=== PATIENT | female | born 2000 | race Caucasian/White ===

== ENCOUNTER 2024-04-06 08:20 | Emergency (ER) | payer MEDICAID, SELFPAY ==
[2024-04-06 08:21] VITALS: BMI 28.3
[2024-04-06 08:23] VITALS: BP 142/85; PULSE 88; RESP 19; TEMP 37; O2SAT 98
--- NOTE | 2024-04-06 08:23 | XR_ITS ---
Examination: Complete OB ultrasound greater than 14 weeks Date and time of exam: April 06, 2024 0845 hrs. Indications: Vaginal bleeding and pelvic discomfort beginning one hour ago Findings: Viable intrauterine single fetus with single amniotic sac presentation transverse head maternal left Cardiac motion 144 BPM Placenta posterior grade 1 Umbilical cord insertion 3 vessel seen Amniotic fluid index 4.2 cm Cervix 5.0 cm Right ovary 2.3 x 1.9 cm arterial flow Left ovary 2.9 x 2.4 cm arterial flow. Composite estimated gestational age based on BPD, head circumference, abdominal circumference, femur length is 15 weeks 5 days Estimated weight 122 g. Survey of intracranial anatomy, spinal anatomy, abdominal anatomy, four-chamber heart performed with no abnormalities identified. Impression: Viable intrauterine gestation transverse presentation Placenta posterior grade 1 no abruption.
[2024-04-06 08:56] LABS: Basophils % (Auto) 0 % (0-2.5); Eosinophils # (Auto) 0.1 Thou/mm3 (0.0-0.5); Eosinophils % (Auto) 1 % (0-10); Hematocrit 37.2 % (36.0-46.0); Hemoglobin 12.8 g/dL (12.0-16.0); Immature Granulocytes % (Auto) 0 % (0-0); Immature Granulocytes Auto 0.02 Thou/mm3 (0.00-0.00); Lymphocytes % (Auto) 31 % (10-50); Mean Corpuscular HGB Conc 34.4 g/dl (31.0-37.0); Mean Corpuscular Hemoglobin 30.6 pg (25.0-35.0); Mean Corpuscular Volume 89 fL (80-100); Monocytes # (Auto) 0.4 Thou/mm3 (0.0-0.8); Monocytes % (Auto) 6 % (0-12); Neutrophils # (Auto) 3.8 Thou/mm3 (1.8-7.7); Neutrophils % (Auto) 61 % (37-80); Nucleated Red Blood Cell % 0 /100 WBC (0); Platelet Count 217 Thou/mm3 (140-440); RDW Standard Deviation 44.1 fL (36.4-46.3); Red Blood Count 4.18 Miln/mm3 (4.00-5.20); White Blood Count 6.3 Thou/mm3 (3.6-11.0)
[2024-04-06 09:41] LABS: Albumin, Serum 4.5 gm/dL (3.5-5.0); Albumin/Globulin Ratio 1.7 (1.2-2.2); Alkaline Phosphatase 59 U/L (46-116); Anion Gap 7 (7-16); Aspartate Amino Transferase 15 U/L (0-34); BUN/Creatinine Ratio 7 Ratio (12-20); Bilirubin,Total 0.4 mg/dL (0.3-1.2); Blood Urea Nitrogen < 5 mg/dL (9-23); Carbon Dioxide 23.3 mMol/L (20.0-31.0); Chloride 107 mMol/L (98-107); Creatinine (Component) 0.7 mg/dL (0.6-1.3); Estimated Creatinine Clearance 122.8 mL/min (>60); Globulin 2.6 gm/dL (2.3-3.5); Glucose 89 mg/dL (74-106); Osmolality,Calculated 270 (275-295); Potassium 3.5 mMol/L (3.4-5.1); Sodium 137 mMol/L (136-145); Total Protein 7.1 gm/dL (5.7-8.2); eGFR > 60 See Note
--- NOTE | 2024-04-06 09:45 | PRELIM_ITS ---
Obstetric ultrasound. April 06, 2024 at 0845 hoursClinical history: Vaginal bleeding, .Co mparison: None.Findings:There is a gravid uterus with a live fetus in transverse lie with head toward s the maternal left of mean gestational age 15 weeks and 5 days (by biometry). cardiac ac tivity is present at a heart rate of 144 beats per minute. The placenta is posterior in location. The re is no evidence of placenta previa or retroplacental hemorrhage. Amniotic fluid is adequate. Estima surinder weight is 122 grams+/- 118 grams. Estimated due date by ultrasound is 09/23/2024. The cervi jadiel length measures 5 cm. The internal os is closed. The right ovary measures 2.3 x 1.3 x 1.9 cm and is unremarkable. The left ovary measures 2.9 x 1.7 x 2.4 cm and is unremarkable. Both ovaries demonst rate color flow and spectral waveforms on Doppler evaluation. Impression:Gravid uterus with a single live fetus in transverse lie of mean gestational age 15 weeks and 5 days.Other findings as described above. Report Electronically Signed By: Ryan Patel 04/06/2024 9:45:17 AM [EST]
[2024-04-06 10:00] LABS: Alanine Aminotransferase 8 U/L (10-49)
[2024-04-06 10:22] LABS: Beta HCG,Quantitative 10295 mIU/mL (<5.0)
--- NOTE | 2024-04-06 10:34 | EDNOTE_ITS ---
ED OB Contraction Preg RMI/HPI General Chief complaint: Vaginal Bleeding Stated complaint: 16WKS PREG, VAG BLEED THIS AM Time Seen by Provider: 04/06/24 08:23 Arrival date/time: 04/06/24 08:20 23-year-old female approximately 16 weeks presents emerged department today stating that she had vaginal spotting this morning patient reports history of miscarriage and was concerned therefore she came to the ER for further evaluation Limitations: no limitations Related Data Home Medications ?Medication ?Instructions ?Recorded ?Confirmed prenat.vits,jadiel,[id number] 1 tab PO QDAY 10/22/20 11/27/20 ferrous sulfate 325 mg (65 mg 325 mg PO QDAY 11/27/20 11/27/20 iron) tablet (iron) Previous Rx's ?Medication ?Instructions ?Recorded hydrocodone 5 mg-acetaminophen 325 1 tab PO TID #20 tabs 01/20/22 mg tablet acetaminophen 650 mg 650 mg PO Q8H PRN fever or pain 02/24/22 tablet,extended release #30 tabs ibuprofen 600 mg tablet 600 mg PO Q8H PRN fever or pain 02/24/22 #30 tabs Allergies Allergy/AdvReac Type Severity Reaction Status Date / Time No Known Allergies Allergy Verified 04/06/24 08:23 Review of Systems Review of Systems Systems Reviewed: All systems reviewed, normal except as documented Constitutional Constitutional: Reports system reviewed and no additional complaints, except as documented, Denies fever(s) and Denies headache(s) Eyes Eyes: Reports system reviewed and no additional complaints, except as documented and Denies blurry vision ENT Ears, Nose, Mouth, and Throat: Reports system reviewed and no additional complaints, except as documented, Denies headache(s), Denies nasal congestion and Denies nasal discharge Cardiovascular Cardiovascular: Reports system reviewed and no additional complaints, except as documented, Denies chest pain and Denies dyspnea Respiratory Respiratory: Reports system reviewed and no additional complaints, except as documented, Denies chest congestion, Denies cough and Denies dyspnea Gastrointestinal Gastrointestinal: Reports system reviewed and no additional complaints, except as documented and Denies abdominal pain Genitourinary Genitourinary: Reports system reviewed and no additional complaints, except as documented and Reports abnormal vaginal bleeding Integumentary/Breasts Skin/Breast: Reports system reviewed and no additional complaints, except as documented and Denies rash Neurologic Neurologic: Reports system reviewed and no additional complaints, except as documented, Reports as per HPI and Denies headache(s) Past Medical History Past Medical History NEUROLOGIC: Negative Neurological Disorders CARDIAC: Negative Cardiac Disorders ED Exam General Limitations: Present no limitations General appearance: Present alert and in no apparent distress Head Head exam: Present atraumatic Eye Eye exam: Present normal appearance, PERRL, EOMI and conjunctival injection ENT ENT exam: Present normal exam, normal oropharynx and mucous membranes moist Neck Neck exam: Present normal inspection, full ROM and trachea midline Chest Chest inspection: Present normal inspection and symmetric chest wall rise Respiratory Respiratory exam: Present normal lung sounds bilaterally; Absent respiratory distress Cardiovascular Cardiovascular exam: Present regular rate, normal rhythm and normal heart sounds Abdominal Exam Abdominal exam: Present soft and normal bowel sounds; Absent distention, tenderness, guarding, rebound or rigidity Extremities Exam Extremities exam: Present normal inspection and full ROM Back Exam Back exam: Present normal inspection and full ROM Neurological Exam Neurological exam: Present alert, oriented X3 and CN II-XII intact Psychiatric Psychiatric exam: Present normal affect and normal mood Skin Skin exam: Present warm, dry, intact and normal color Course Quality Measures none Orders Category Date Time Status US OB >= 14 weeks Fetus Stat Exams 04/06/24 08:23 Taken ABO/RH Type Stat Lab 04/06/24 08:31 Completed Beta HCG,Quantitative Stat Lab 04/06/24 08:31 Completed CBC Stat Lab 04/06/24 08:31 Completed Comprehensive Metabolic Panel Stat Lab 04/06/24 08:31 Completed Vital Signs Vital signs: Vital Signs Temperature 98.6 F 04/06/24 08:23 Pulse Rate 88 04/06/24 08:23 Respiratory Rate 19 04/06/24 08:23 Blood Pressure 142/85 H 04/06/24 08:23 Pulse Oximetry (%) 98 04/06/24 08:23 Oxygen Delivery Method Room Air 04/06/24 08:23 O2 saturation 98% r/a wnl Vaginal Bleeding MDM Narrative MDM Narrative: 23-year-old female approximately 16 weeks presents emerged department today stating that she had vaginal spotting this morning patient reports history of miscarriage and was concerned therefore she came to the ER for further evaluation On exam patient well-appearing patient does not appear ill or toxic Patient does report that she had sexual intercourse last night Lab work as well as ultrasound obtained patient appears a viable Patient discharged home in no distress to follow-up with primary care doctor in the next 24 to 48 hours and for any worsening symptoms to return to the ER immediately Patient data External records reviewed:: [facility] previous records Clinical information provided by:: patient Social determinants that could affect healthcare access:: none Patient has the following chronic illnesses:: See history How is presenting disease/condition affected by chronic disease/condition?: uneffected by Evaluation data The following diagnostics were reviewed and interpreted by me:: lab results and radiology exam(s) Lab and/or radiology exams considered but not ordered:: Labs radiology obtained Interpretation Summary: Reviewed by me Medications / Prescriptions Medications or Prescriptions considered but not ordered:: Given no meds Medication administrations:: Given no meds Consultations Consultation(s) initiated? (list below): No Diagnosis Vaginal Bleeding Differential Diagnosis: missed and threatened Most likely diagnosis given after review of the tests above:: Threatened Admission Indicated Admission indicated?: not indicated Admission Request Was there a request for admission?: No Disposition Plan Disposition Plan: Discharge Discharge Attestation Discharge Attestation: The patient and all family members were given an opportunity to ask questions and understood the discharge instructions. Discharge instructions specifically effects, indications for sooner follow up or return to the emergency department, and the expected course of current diagnosis. Patient condition: Stable Discharge Plan Plan Patient Disposition: HOME (Self Care) Disposition Comment: Stable Prescriptions/Referrals Prescriptions/Med Rec: No Action Vitamin Tablet 1 tab PO QDAY ferrous sulfate [iron] 325 mg (65 mg iron) Tablet 325 mg PO QDAY hydrocodone-acetaminophen 5-325 mg tablet 1 tab PO TID MDD 3 Qty: 20 0RF acetaminophen 650 mg tablet extended release 650 mg PO Q8H PRN (Reason: fever or pain) Qty: 30 0RF Rx Instructions: swallow whole; do not chew/break/dissolve/open ibuprofen 600 mg tablet 600 mg PO Q8H PRN (Reason: fever or pain) Qty: 30 0RF Referrals: Segundo Grider MD [Primary Care Provider] - 04/07/24 Problem List Clinical Impression: Vaginal bleeding during Patient/Caregiver Discharge Instructions Education Materials: Bleeding During Early Additional Instructions: Please follow up with your POLITICAL SCIENCE PROFESSOR in the next 24-48hrs for any worsening symptoms return here immediately Print Language: Wolof Stand Alone Forms: Lynda Award Info., Patient Portal Info Letter PA/TANISHA Supervising Physician CHAD/[employer] SERVICE WORKER Supervising Physician: Dr. salgado
== END 2024-04-06 10:40 | disposition home or self-care (01) ==
PROVIDERS: Nurse Practitioner Primary Care; Emergency Provider Emergency Medicine; PCP Family Medicine
DX: O20.9 Hemorrhage in early pregnancy, unspecified (principal); Z3A.16 16 weeks gestation of pregnancy
CPT/HCPCS: 36415; 76805; 80053; 84702; 85025; 86900; 86901; 99284

== ENCOUNTER 2024-04-16 00:05 | Emergency (ER) | payer MEDICAID, SELFPAY ==
[2024-04-16 00:20] VITALS: BP 131/84; PULSE 84; RESP 18; TEMP 37; O2SAT 98
[2024-04-16] MEDS: HYDROcodone/APAP 5/325 TABLET 1 TAB PO (00:40)
--- NOTE | 2024-04-16 02:22 | EDNOTE_ITS ---
ED Dental RME/HPI General Chief complaint: Dental/Oral/Throat Stated complaint: TOOTHACHE Time Seen by Provider: 04/16/24 00:34 Arrival date/time: 04/16/24 00:05 24F with history of psych/drug use presents to ED with 1 day of dental pain. Patient is currently . Patient does not see dentist regularly, but will. Limitations: no limitations Related Data Home Medications ?Medication ?Instructions ?Recorded ?Confirmed prenat.vits,jadiel,[id number] 1 tab PO QDAY 10/22/20 11/27/20 ferrous sulfate 325 mg (65 mg 325 mg PO QDAY 11/27/20 11/27/20 iron) tablet (iron) Previous Rx's ?Medication ?Instructions ?Recorded hydrocodone 5 mg-acetaminophen 325 1 tab PO TID #20 tabs 01/20/22 mg tablet acetaminophen 650 mg 650 mg PO Q8H PRN fever or pain 02/24/22 tablet,extended release #30 tabs ibuprofen 600 mg tablet 600 mg PO Q8H PRN fever or pain 02/24/22 #30 tabs Allergies Allergy/AdvReac Type Severity Reaction Status Date / Time No Known Allergies Allergy Verified 04/16/24 00:09 Review of Systems Review of Systems Systems Reviewed: All systems reviewed, normal except as documented Constitutional Constitutional: Reports system reviewed and no additional complaints, except as documented, Denies fever(s) and Denies headache(s) ENT Ears, Nose, Mouth, and Throat: Reports as per HPI, Reports dental pain, Denies disequilibrium and Denies headache(s) Cardiovascular Cardiovascular: Reports system reviewed and no additional complaints, except as documented, Denies chest pain and Denies dyspnea Respiratory Respiratory: Reports system reviewed and no additional complaints, except as documented, Denies cough and Denies dyspnea Gastrointestinal Gastrointestinal: Reports system reviewed and no additional complaints, except as documented, Denies abdominal pain, Denies nausea and Denies vomiting Neurologic Neurologic: Reports system reviewed and no additional complaints, except as documented, Denies confusion, Denies disequilibrium and Denies headache(s) Psychiatric Psychiatric: Denies confusion Past Medical History Past Medical History NEUROLOGIC: Negative Neurological Disorders CARDIAC: Negative Cardiac Disorders or Congestive Heart Failure RESPIRATORY: Negative Chronic Obstructive Pulmonary Disease (COPD) GASTROINTESTINAL: Negative Gastrointestinal Disorders, Hepatitis or Colorectal Cancer GENITOURINARY: Negative Genitourinary Disorders, Renal Disease or Prostate Cancer REPRODUCTIVE: Positive Previous Pregnancies; Negative Breast Cancer, Endometriosis, Pelvic Inflammatory Disease, Testicular Cancer or Uterine Prolapse MUSCULOSKELETAL: Negative Musculoskeletal Disorders or Bone Cancer ENDOCRINE: Negative Endocrine Disorders, Diabetes Mellitus Type 1 or Diabetes Mellitus Type 2 HEMATOLOGIC: Negative Blood Disorders, Anemia, Leukemia, Hemophilia, Thalassemia, Sickle Cell Disease or Clotting Problems OTHER HISTORY: Positive Chicken Pox; Negative Hospitalization, Autoimmune Disease, Down Syndrome, Developmental Delay, Shingles, Falls, Blood Transfusions, Blood Transfusion Reaction, Anesthesia Reactions, Organ Transplant, Chemotherapy, Radiation Therapy, Hyperbaric Therapy, MRSA, VRSA, Vancomycin-Resistant Enterococci, Human Immunodeficiency Virus (HIV), Measles, Mumps, Rubella (Arabic Measles), Pertussis, Clostridium Difficile, Breast Cancer, Cervical Cancer, Colorectal Cancer, Lung Cancer, Ovarian Cancer, Prostate Cancer or Testicular Cancer Family History FAMILY HISTORY: Positive Family Psychiatric Problems (mother- boarderline bipolar, brother-bipolar/adhd, maternal grandmother-); Negative Family Respiratory Disorders, Family Cardiac Disorders, Family Gastrointestinal Problems, Family Cancer, Family Surgery or Family Anesthesia Reaction Surgical History SURGICAL: Negative Section or Organ Transplant Social History SMOKING STATUS: Never smoker SUBSTANCE USE: former substance user and marijuana ED Exam General Limitations: Present no limitations General appearance: Present alert and in no apparent distress Head Head exam: Present atraumatic Eye Eye exam: Present normal appearance, PERRL and EOMI ENT ENT exam: Present mucous membranes moist Expanded ENT Exam Teeth exam: Present dental caries Neck Neck exam: Present normal inspection, full ROM and trachea midline Chest Chest inspection: Present normal inspection and symmetric chest wall rise Respiratory Respiratory exam: Present normal lung sounds bilaterally Cardiovascular Cardiovascular exam: Present regular rate, normal rhythm and normal heart sounds Abdominal Exam Abdominal exam: Present soft and normal bowel sounds Extremities Exam Extremities exam: Present normal inspection and full ROM Back Exam Back exam: Present normal inspection and full ROM Neurological Exam Neurological exam: Present alert, oriented X3 and CN II-XII intact Psychiatric Psychiatric exam: Present normal affect and normal mood Skin Skin exam: Present warm, dry, intact and normal color Course Quality Measures none Orders Category Date Time Status HYDROcodone*/APAP 5/325 [[place] 5/325] Med 04/16/24 00:34 Discontinued 1 tab PO X1 ONE Vital Signs Vital signs: Vital Signs Temperature 98.6 F 04/16/24 00:20 Pulse Rate 84 04/16/24 00:20 Respiratory Rate 18 04/16/24 00:20 Blood Pressure 131/84 H 04/16/24 00:20 Pulse Oximetry (%) 98 04/16/24 00:20 Oxygen Delivery Method Room Air 04/16/24 00:20 O2 at 98% on RA and WNLs Dental / Oral MDM Narrative MDM Narrative:: 24F with history of psych/drug use presents to ED with 1 day of dental pain. Patient is currently . Patient does not see dentist regularly, but will. Physical exam reveals no obvious gingival swelling. Generally poor dentition with caries. Patient is afebrile, alert, but anxious/crying. Patient okay with single dose of opioid. Patient data External records reviewed:: [facility] previous records Clinical information provided by:: patient Social determinants that could affect healthcare access:: mental health Patient has the following chronic illnesses:: drug/psych How is presenting disease/condition affected by chronic disease/condition?: exacerbated by Evaluation data The following diagnostics were reviewed and interpreted by me:: other (specify) (none) Lab and/or radiology exams considered but not ordered:: not ordered Interpretation Summary: n/a Medications / Prescriptions Medications or Prescriptions considered but not ordered:: ordered Medication administrations:: Medication Administration History Discontinued Medications Hydrocodone Bitart/Acetaminophen (Hydrocodone/Apap 5/325 Tablet) 1 tab PO X1 ONE Stop: 04/16/24 00:35 Last Admin: 04/16/24 00:40 Dose: 1 tab Documented By: OA above Consultations Consultation(s) initiated? (list below): No Diagnosis Dental Differential Diagnosis: gingival abscess, dental caries, toothache, dental abscess, fracture of tooth and aphthous ulcer Most likely diagnosis given after review of the tests above:: toothache Admission Indicated Admission indicated?: not indicated Admission Request Was there a request for admission?: No Disposition Plan Disposition Plan: Discharge Discharge Attestation Discharge Attestation: The patient and all family members were given an opportunity to ask questions and understood the discharge instructions. Discharge instructions specifically effects, indications for sooner follow up or return to the emergency department, and the expected course of current diagnosis. Patient condition: Stable Discharge Plan Plan Patient Disposition: HOME (Self Care) Disposition Comment: Stable Prescriptions/Referrals Prescriptions/Med Rec: No Action Vitamin Tablet 1 tab PO QDAY ferrous sulfate [iron] 325 mg (65 mg iron) Tablet 325 mg PO QDAY hydrocodone-acetaminophen 5-325 mg tablet 1 tab PO TID MDD 3 Qty: 20 0RF acetaminophen 650 mg tablet extended release 650 mg PO Q8H PRN (Reason: fever or pain) Qty: 30 0RF Rx Instructions: swallow whole; do not chew/break/dissolve/open ibuprofen 600 mg tablet 600 mg PO Q8H PRN (Reason: fever or pain) Qty: 30 0RF Problem List Clinical Impression: Toothache Patient/Caregiver Discharge Instructions Education Materials: ED Dental Pain Additional Instructions: Please follow-up with PCP within 24-48 hours and return immediately if symptoms worsen. See dentist soon. Print Language: Latvian Stand Alone Forms: Patient Portal Info Letter PA/TANISHA Supervising Physician CHAD/TANISHA Supervising Physician: Dr. Dunham
== END 2024-04-16 01:05 | disposition home or self-care (01) ==
LOC: SERX 00:43
PROVIDERS: Emergency Provider Emergency Medicine; PCP Family Medicine
DX: K08.89 Other specified disorders of teeth and supporting structures (principal)
CPT/HCPCS: 99283; A9270

== ENCOUNTER 2024-08-17 12:32 | Observation (INO) | payer MEDICAID, SELFPAY ==
[2024-08-17] VITALS (29 sets, daily range): BP systolic 118–132; BP diastolic 67–89; PULSE 79–105; RESP 16–97; TEMP 36.7; O2SAT 92–99; BMI 27.8
--- NOTE | 2024-08-17 13:01 | XR_ITS ---
Examination: Complete OB ultrasound greater than 14 weeks Date and time of exam: August 17, 2024 1324 hrs. Indications: Patient fell 4 days ago followed by pelvic contractions vaginal bleeding abdominal pain Findings: Viable intrauterine single fetus with single amniotic sac presentation cephalic Cardiac motion 127 BPM Placenta posterior grade 2 Umbilical cord insertion seen Amniotic fluid index 13.4 cm spine anterior Cervix 2.9 cm Ovaries obscured by the uterus. Composite estimated gestational age based on BPD, head circumference, abdominal circumference, femur length is 35 weeks 4 days Estimated weight 2481.7 g. Survey of intracranial anatomy, spinal anatomy, abdominal anatomy, four-chamber heart performed with no abnormalities identified. Impression: Viable intrauterine gestation cephalic presentation Placenta posterior grade 2 no abruption Estimated gestational age 35 weeks 4 days Estimated weight 2481.7 g.
--- NOTE | 2024-08-17 14:50 | PC.NURSE ---
[address] bender updated on pt status, u/s results reviewed no abruption noted, caren 13.4, vertex, ve ft/thick/-3, orders rec to nd home
== END 2024-08-17 14:55 | disposition home or self-care (01) ==
PROVIDERS: Admitting Provider Student in an Organized Health Care Education/Training Program; PCP Family Medicine; Visit Provider Student in an Organized Health Care Education/Training Program
DX: O36.8130 Decreased fetal movements, third trimester, not applicable or unspecified (principal); O9A.213 Injury, poisoning and certain other consequences of external causes complicating pregnancy, third trimester; S39.91XA Unspecified injury of abdomen, initial encounter; W19.XXXA Unspecified fall, initial encounter; O21.2 Late vomiting of pregnancy; Z3A.35 35 weeks gestation of pregnancy
CPT/HCPCS: 59025; 59899; 76805

== ENCOUNTER 2024-09-24 19:31 | Inpatient (IN) | payer MEDICAID, SELFPAY ==
[2024-09-24] VITALS (22 sets, daily range): BP systolic 122–169; BP diastolic 63–107; PULSE 51–94; RESP 17–100; TEMP 36.8; O2SAT 85–100; BMI 28.4
[2024-09-24] MEDS: fentaNYL CIT INJ 50 mCg/ML AMP 2ML 100 MCG IV ×2 (20:44→21:56)
[2024-09-24 20:47] LABS: Basophils % (Auto) 0 % (0-2.5); Eosinophils # (Auto) 0.1 Thou/mm3 (0.0-0.5); Eosinophils % (Auto) 1 % (0-10); Hematocrit 34.6 % (36.0-46.0); Hemoglobin 11.6 g/dL (12.0-16.0); Immature Granulocytes % (Auto) 0 % (0-0); Immature Granulocytes Auto 0.02 Thou/mm3 (0.00-0.00); Lymphocytes # (Auto) 1.7 Thou/mm3 (1.0-4.8); Lymphocytes % (Auto) 18 % (10-50); Mean Corpuscular HGB Conc 33.5 g/dl (31.0-37.0); Mean Corpuscular Hemoglobin 29.7 pg (25.0-35.0); Mean Corpuscular Volume 89 fL (80-100); Monocytes # (Auto) 0.7 Thou/mm3 (0.0-0.8); Monocytes % (Auto) 7 % (0-12); Neutrophils # (Auto) 7.2 Thou/mm3 (1.8-7.7); Neutrophils % (Auto) 74 % (37-80); Nucleated Red Blood Cell % 0 /100 WBC (0); Platelet Count 182 Thou/mm3 (140-440); RDW Standard Deviation 47.4 fL (36.4-46.3); Red Blood Count 3.91 Miln/mm3 (4.00-5.20); White Blood Count 9.7 Thou/mm3 (3.6-11.0)
[2024-09-24 21:03] LABS: Alanine Aminotransferase 12 U/L (10-49); Albumin, Serum 4.3 gm/dL (3.5-5.0); Albumin/Globulin Ratio 1.7 (1.2-2.2); Alkaline Phosphatase 168 U/L (46-116); Anion Gap 8 (7-16); Aspartate Amino Transferase 19 U/L (0-34); BUN/Creatinine Ratio 10 Ratio (12-20); Bilirubin,Total 0.4 mg/dL (0.3-1.2); Blood Urea Nitrogen 6 mg/dL (9-23); Calcium 9.3 mg/dL (8.3-10.6); Calcium (Corrected) 9.3 mg/dL (8.5-10.1); Carbon Dioxide 24.3 mMol/L (20.0-31.0); Chloride 104 mMol/L (98-107); Creatinine (Component) 0.6 mg/dL (0.6-1.3); Estimated Creatinine Clearance 147.6 mL/min (>60); Globulin 2.6 gm/dL (2.3-3.5); Glucose 72 mg/dL (74-106); Osmolality,Calculated 268 (275-295); Potassium 3.8 mMol/L (3.4-5.1); Sodium 136 mMol/L (136-145); Total Protein 6.9 gm/dL (5.7-8.2); eGFR > 60 See Note
[2024-09-24 21:34] LABS: Amphetamine/Metham Scrn,Ur OB Negative (Negative); Benzoylecgonine Screen, Ur OB Negative (Negative); Creatinine,Random Urine 56 mg/dL (30-125); Opiate Screen,Urine OB Negative (Negative); Protein Total, Random Urine 9 mg/dL (1-14); THC Screen,Urine OB Positive (Negative)
[2024-09-24 21:35] LABS: THC U Confirm* See Sep Rpt
[2024-09-24 22:57] LABS: Syphilis Nonreactive (Nonreactive)
[2024-09-24] MEDS: OXYTOCIN in NS 20 units 20 UNIT/1,000 ML BAG 125 UNIT IV (23:17)
[2024-09-24] MEDS: METHYLERGONOVINE INJ 0.2 MG/ML VIAL IM (23:22)
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
--- NOTE | 2024-09-24 23:44 | OBDSUM_ITS ---
Data (Henry) Data Hx Section: No : 4 Term: 2 : 0 Livin Abortions: Spontaneous & Theraputic: 1 Delivery Data (Henry) Labor Data Initiation of labor: Spontaneous Induction/Augmentation Agent: None ROM date: 09/24/24 ROM time: 13:00 Amniotic membrane rupture type: Spontaneous Amniotic fluid description: Clear Delivery Data Onset of labor date: 09/24/24 Onset of labor time: 19:00 Complete dilation date: 09/24/24 Complete dilation time: 23:09 delivery date: 09/24/24 delivery time: 23:10 Placenta delivery date: 09/24/24 Placenta delivery time: 23:16 Stage 1 total time: Labor - Stage 1 Duration 4 hours and 9 minutes Delivered by: florina Delivery nurse: Armando Espinal RN [place] nurse: Daniela ABEL Product Support Analyst at delivery: No Support person(s) at delivery: father of the baby Other staff at delivery: Yu Villagran Rn, [employer] division chair Method Delivery method: Normal Vaginal Delivery Presentation: Vertex Anesthesia Type Anesthesia Type: None Placenta Placenta delivery description: Spontaneous Cord blood sent to lab: Yes cord blood collection: Cord Blood Type Episiotomy Episiotomy description: None EBL Estimated blood loss (ml): 150 Umbilical Cord cord description: 3 Vessels Additional Procedures Maritza is a 24yo [id number] s/p uncomplicated at 40wk after presenting in active labor/with SROM, delivering at 2310 on 09/24/2024. On presentation, SCE was 4cm. She progressed without augmentation to C/C/+2 at which point she began pushing. She was not able to receive an epidural. With good maternal pushing efforts, infant's head delivered OA and restituted SONU. Left anterior shoulder delivered easily followed by posterior shoulder and corpus. Infant had spontaneous cry and was vigorous. Apgars 9/9. Infant placed on maternal abdomen where nose/mouth were suctioned and dried/stimulated. After approximately 1 minute, cord was clamped x2 and cut by FOB. Cord blood collected for typing. With fundal massage and cord traction, placenta delivered spontaneously and intact with 3 vessel centrally inserted cord. Fundal massage performed and IV pitocin given per protocol with fundus then firm at u-2cm and hemostasis noted. Inspection of perineum and vagina revealed small superficial and hemostatic bilateral labial lacerations with no need for repair. Small trickle of blood, so sweep just within cervix/DENISE performed which retrieved a small amount of clot. 0.2mg IM methergine given with observed hemostasis after. All counts correct x2. Mom and were doing well when I left the room. Monae Cotter MD Complications Complications: none Pruden Data (Henry) Data Pruden's gender: Male weight (gms): 3010 g Weight (pounds): 6 lbs and 10.2 ozs 1 minute: 9 5 minutes: 9
[2024-09-25] VITALS (10 sets, daily range): BP systolic 118–135; BP diastolic 65–90; PULSE 54–74; RESP 16–17; TEMP 36.6–36.8; O2SAT 97–99
[2024-09-25] MEDS: ONDANSETRON INJ 2 MG/ML INJ 2 ML 4 MG IV (00:04)
[2024-09-25] MEDS: ACETAMINOPHEN 325 MG TABLET 650 MG PO (01:17)
[2024-09-25 06:01] LABS: Basophils % (Auto) 0 % (0-2.5); Eosinophils % (Auto) 0 % (0-10); Hematocrit 33.6 % (36.0-46.0); Hemoglobin 11.2 g/dL (12.0-16.0); Immature Granulocytes % (Auto) 0 % (0-0); Immature Granulocytes Auto 0.04 Thou/mm3 (0.00-0.00); Lymphocytes # (Auto) 1.4 Thou/mm3 (1.0-4.8); Lymphocytes % (Auto) 14 % (10-50); Mean Corpuscular HGB Conc 33.3 g/dl (31.0-37.0); Mean Corpuscular Hemoglobin 29.6 pg (25.0-35.0); Mean Corpuscular Volume 89 fL (80-100); Monocytes # (Auto) 0.7 Thou/mm3 (0.0-0.8); Monocytes % (Auto) 7 % (0-12); Neutrophils # (Auto) 8.2 Thou/mm3 (1.8-7.7); Neutrophils % (Auto) 79 % (37-80); Nucleated Red Blood Cell % 0 /100 WBC (0); Platelet Count 164 Thou/mm3 (140-440); Red Blood Count 3.79 Miln/mm3 (4.00-5.20); White Blood Count 10.4 Thou/mm3 (3.6-11.0)
[2024-09-25] MEDS: DOCUSATE SOD 100 MG CAPSULE PO (07:38)
--- NOTE | 2024-09-25 10:45 | PC.LAC ---
mom stated that baby not sucking really well, that nurse had hard time getting him to suck on her finder. mom states that bottle feeds are only what drips not from him sucking on the nipple. examined baby to see a slight tongue tie, gave mom information concerning this issue. mom stated that her other baby had a tongue tie as well.
[2024-09-25] MEDS: IBUPROFEN TAB 400 MG TABLET 800 MG PO (11:26)
--- NOTE | 2024-09-25 11:55 | PC.SS ---
CWS report submitted due to patient testing positive for THC during admission. Verbal report submitted to Jayshree Ghosh. Written report submitted electronically. Copies of written reports placed in patients' charts. CWS response will be 10 day follow up. Bedside nurse notified.
--- NOTE | 2024-09-25 15:08 | ESDS_ITS ---
DS: Providers Provider Date of admission: 09/24/24 23:44 Primary care physician: Physician No Primary/Family Admitting Provider: Monae Cotter MD Attending Provider on Admission: Monae Cotter MD Consults: 09/24/24 23:30 Referral Routine Comment: Attending Provider on DC: Monae Cotter MD Discharging Provider: Monae Cotter MD DS: Diagnosis Discharge Diagnosis (1) Active labor at term: Status: Acute (2) Normal labor and delivery: Status: Acute (3) Marijuana use during : Status: Acute (4) History of induced hypertension: Status: Acute Problem List Completed Was Problem List Reviewed/Reconciled?: Yes Summary/Hosp Course Brief History: Maritza is a 24yo [id number] s/p uncomplicated at 40wk after prsenting in labor with SROM, delivering at 2310 on 09/24/24. She has had an uncomplicated course, meeting all milestones and feels ready for discharge home. She is ambulating without lightheadedness, tolerating regular diet no n/v, spontaneously voiding without issue. She has no chest pain or shortness of breath. No fevers or chills. Minimal, appropriate discomfort. Vitals normal, benign exam. Hemodynamically stable with no evidence of infection. PP Hgb 11.2. Peripartum Data Delivery Method: Normal Vaginal Delivery Episiotomy Description: None Status at Discharge Functional status at discharge: independent ambulation Overall status at discharge: patient is back to baseline Time Spent with Patient Time attestation: Total time spent providing and/or coordinating discharge services: Exam Vital Signs Temp Pulse Resp BP Pulse Ox O2 Del Method 98.2 F 74 17 122/85 H 98 Room Air 09/25/24 11:29 09/25/24 11:29 09/25/24 11:29 09/25/24 11:29 09/25/24 11:29 09/25/24 11:29 Narrative Exam General: well developed, well nourished, no acute distress, conversant Cardiac: normal heart rate Lungs: breathing without distress Abdomen: soft, post-gravid, non-tender, no rebound or guarding, Fundus firm at u-3cm. Extremities: no pain with palpation of calves, trace edema of BLE Discharge Plan Plan Patient Disposition: HOME (Self Care) Patient condition on transfer: Stable Prescriptions/Referrals Prescriptions/Med Rec: New docusate sodium 100 mg Capsule 100 mg PO BID 10 Days Qty: 20 0RF ibuprofen 800 mg tablet 800 mg PO Q8H PRN (Reason: See Comments) 10 Days Qty: 20 0RF Referrals: No Primary/Family,Physician [Primary Care Provider] - Patient/Caregiver Discharge Instructions Discharge Activity: activity as tolerated and other Other Discharge Activity Instructions:: vaginal rest and no heavy lifting for 6 weeks Other Discharge Diet Instructions: regular diet Education Materials: After a Vaginal Print Language: Japanese Activity Restrictions/Additional Instructions: Follow up with ENRIQUE Potter in 2-4 weeks, call clinic for appointment Stand Alone Forms: Lynda Award Info., Patient Portal Info Letter Discharge Order Discharge Orders: Discharge (Routine); Ordered 09/25/24 Ordered By: Monae Cotter Planned Discharge Date 09/25/24
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
== END 2024-09-25 23:55 | disposition home or self-care (01) | DRG 560 ==
LOC: S4NX 09-25 05:59 → S4SX 09-25 05:59
PROVIDERS: Admitting Provider Obstetrics & Gynecology; Visit Provider Obstetrics & Gynecology
DX: O48.0 Post-term pregnancy (principal); O42.02 Full-term premature rupture of membranes, onset of labor within 24 hours of rupture; O70.0 First degree perineal laceration during delivery; O99.324 Drug use complicating childbirth; O13.9 Gestational [pregnancy-induced] hypertension without significant proteinuria, unspecified trimester; Z37.0 Single live birth; F12.90 Cannabis use, unspecified, uncomplicated; Z3A.40 40 weeks gestation of pregnancy; Z87.891 Personal history of nicotine dependence; Z62.810 Personal history of physical and sexual abuse in childhood
CPT/HCPCS: 36415; 59025; 59409; 80053; 80307; 82570; 84112; 84156; 85025; 86780; 86850; 86900; 86901